=== PATIENT | female | born 1970 | race Caucasian/White ===

== ENCOUNTER → 2023-09-07 17:59 | Outpatient (REF) | payer OTHER, SELFPAY | LOC: WDC 17:59 | PROVIDERS: ATTENDING PHYSICIAN Obstetrics & Gynecology; FAMILY PHYSICIAN Nurse Practitioner Primary Care | DX: Z12.31 Encounter for screening mammogram for malignant neoplasm of breast (principal) | CPT/HCPCS: 77063; 77067 ==

== ENCOUNTER → 2023-11-01 09:56 | Outpatient (REF) | payer OTHER, SELFPAY | LOC: RAD 09:56 | PROVIDERS: ATTENDING PHYSICIAN Nurse Practitioner Family | DX: M25.561 Pain in right knee (principal) | CPT/HCPCS: 73564 ==

== ENCOUNTER → 2024-07-04 07:10 | Outpatient (REF) | payer OTHER, SELFPAY ==
[2024-07-04 12:25] VITALS: BMI 30.2
== END ==
LOC: REG 07:10
PROVIDERS: ATTENDING PHYSICIAN Specialist; FAMILY PHYSICIAN Nurse Practitioner Primary Care
DX: S83.242A Other tear of medial meniscus, current injury, left knee, initial encounter (principal)
CPT/HCPCS: 36415; 93005

== ENCOUNTER 2024-07-31 12:03 | Outpatient (RCR) | payer OTHER, SELFPAY | END 2024-07-31 23:59 | disposition home or self-care (01) | LOC: RPT 12:03 | PROVIDERS: ATTENDING PHYSICIAN Physician Assistant; FAMILY PHYSICIAN Internal Medicine Geriatric Medicine | DX: S83.242D Other tear of medial meniscus, current injury, left knee, subsequent encounter (principal); M25.562 Pain in left knee; Z73.6 Limitation of activities due to disability; R26.89 Other abnormalities of gait and mobility; M62.81 Muscle weakness (generalized) | CPT/HCPCS: 97110; 97162; 97530; 97535 ==

== ENCOUNTER 2024-08-03 15:49 | Outpatient (RCR) | payer OTHER, SELFPAY | END 2024-08-07 07:42 | disposition home or self-care (01) | LOC: RPT 15:49 | PROVIDERS: ATTENDING PHYSICIAN Physician Assistant; FAMILY PHYSICIAN Internal Medicine Geriatric Medicine | DX: S83.242D Other tear of medial meniscus, current injury, left knee, subsequent encounter (principal); M25.562 Pain in left knee; Z73.6 Limitation of activities due to disability; R26.89 Other abnormalities of gait and mobility; M62.81 Muscle weakness (generalized) | CPT/HCPCS: 97110; 97530; 97535 ==

== ENCOUNTER → 2024-09-14 15:19 | Outpatient (REF) | payer OTHER, SELFPAY | LOC: WDC 15:19 | PROVIDERS: ATTENDING PHYSICIAN Obstetrics & Gynecology; FAMILY PHYSICIAN Nurse Practitioner Primary Care | DX: Z12.31 Encounter for screening mammogram for malignant neoplasm of breast (principal) | CPT/HCPCS: 77063; 77067 ==

== ENCOUNTER 2024-11-21 12:59 | Outpatient (RCR) | payer OTHER, SELFPAY | END 2024-11-21 23:59 | disposition home or self-care (01) | LOC: RPT 12:59 | PROVIDERS: ATTENDING PHYSICIAN Physician Assistant Surgical; FAMILY PHYSICIAN Nurse Practitioner Primary Care | DX: Z47.89 Encounter for other orthopedic aftercare (principal); M25.562 Pain in left knee; R26.89 Other abnormalities of gait and mobility; M62.81 Muscle weakness (generalized) | CPT/HCPCS: 97110; 97162; 97535 ==

== ENCOUNTER 2024-12-26 08:58 | Outpatient (RCR) | payer OTHER, SELFPAY | END 2024-12-26 23:59 | disposition home or self-care (01) | LOC: RPT 08:58 | PROVIDERS: ATTENDING PHYSICIAN Physician Assistant Surgical; FAMILY PHYSICIAN Nurse Practitioner Primary Care | DX: Z47.89 Encounter for other orthopedic aftercare (principal); M25.562 Pain in left knee; R26.89 Other abnormalities of gait and mobility; M62.81 Muscle weakness (generalized) | CPT/HCPCS: 97110 ==

== ENCOUNTER 2025-01-18 09:01 | Outpatient (RCR) | payer OTHER, SELFPAY | END 2025-01-18 23:59 | disposition home or self-care (01) | LOC: RPT 09:01 | PROVIDERS: ATTENDING PHYSICIAN Physician Assistant Surgical; FAMILY PHYSICIAN Nurse Practitioner Primary Care | DX: Z47.89 Encounter for other orthopedic aftercare (principal); M25.562 Pain in left knee; R26.89 Other abnormalities of gait and mobility; M62.81 Muscle weakness (generalized) | CPT/HCPCS: 97110; 97535 ==

== ENCOUNTER 2025-05-28 09:38 | Outpatient (RCR) | payer OTHER, SELFPAY | END 2025-05-28 23:59 | disposition home or self-care (01) | LOC: RPT 09:38 | PROVIDERS: ATTENDING PHYSICIAN Specialist; FAMILY PHYSICIAN Nurse Practitioner Primary Care | DX: M17.12 Unilateral primary osteoarthritis, left knee (principal); M25.552 Pain in left hip; R26.89 Other abnormalities of gait and mobility; M62.81 Muscle weakness (generalized); Z98.890 Other specified postprocedural states | CPT/HCPCS: 97110; 97162; 97530; 97535 ==

== ENCOUNTER 2025-06-18 14:19 | Outpatient (RCR) | payer OTHER, SELFPAY | END 2025-06-18 23:59 | disposition home or self-care (01) | LOC: RPT 14:19 | PROVIDERS: ATTENDING PHYSICIAN Specialist; FAMILY PHYSICIAN Nurse Practitioner Primary Care | DX: M17.12 Unilateral primary osteoarthritis, left knee (principal); M25.552 Pain in left hip; R26.89 Other abnormalities of gait and mobility; M62.81 Muscle weakness (generalized); M25.562 Pain in left knee; Z98.890 Other specified postprocedural states | CPT/HCPCS: 97110; 97530; 97535 ==